=== PATIENT | male | born 1960 | race Caucasian/White ===

== ENCOUNTER → 2016-07-08 | Outpatient (CLI) | payer BC, OTHER ==
[~2016-07-08] MED LIST: GADOBUTROL 10mMol/10ml INJECTION IV ONE; SALINE FLUSH 10ml SYRINGE ONE
--- NOTE | 2016-07-08 09:08 | DI ---
Indication: ITS.REASON: M54.2 NECK PAIN with left arm and shoulder pain and numbness PROCEDURE: MRI CERVICAL SPINE W/WO CONTRA: Encounter: Initial Comparison: Cervical spine radiographs dated May 08, 2016 and MRI cervical spine dated March 28, 2016 Technique: Multiplanar multisequence MR imaging of the cervical spine was performed with and without contrast. Contrast: 10 mL Gadavist Findings: Alignment of the cervical spine is straightened. Interval anterior cervical spine fusion procedure at the C5-C6 level. Vertebral body heights are maintained. No acute fracture. The cervical and visualized upper thoracic spinal cord signal intensity is normal. The paraspinal soft tissues are unremarkable. Segmental analysis: C2-C3: Normal C3-C4: Degenerative facet and uncovertebral changes causing moderate bilateral neural foraminal stenosis. No focal central protrusion or central canal narrowing. C4-C5: Degenerative facet and uncovertebral changes on the left causing moderate neural foraminal stenosis. No significant central canal narrowing. No right foraminal stenosis. C5-C6: Central protrusion effacing the thecal sac with mild central canal stenosis. Degenerative facet and uncovertebral changes causing moderate to severe left and moderate right neural foraminal stenosis. C6-C7: Bony fusion of the vertebral bodies no significant neural foraminal stenosis. C7-T1: Minimal central bulge without central canal stenosis. No significant neural foraminal stenosis. Postcontrast images show no areas of worrisome enhancement. Impression: Interval surgery at the C5-C6 level with improvement in the central canal narrowing at this level. Otherwise stable multilevel neural foraminal stenosis. .
== END ==
LOC: IMA 06:54
PROVIDERS: ATTEND Neurological Surgery
DX: M48.02 Spinal stenosis, cervical region (principal); M47.22 Other spondylosis with radiculopathy, cervical region; M50.122 Cervical disc disorder at C5-C6 level with radiculopathy; Z98.1 Arthrodesis status
CPT/HCPCS: 72156; A9585

== ENCOUNTER → 2016-07-25 | Outpatient (CLI) | payer BC, OTHER ==
--- NOTE | 2016-07-25 13:07 | DI ---
Indication: ITS.REASON: M96.0 Pseudarthrosis after fusion or arthrodesis; T84.498A FAILED PROCEDURE: CT CERVICAL SPINE W/O CONTRAST: Encounter: Initial Comparison: MRI cervical spine dated July 08, 2016 Technique: Axial CT images through the cervical spine were performed without contrast. Coronal and sagittal reformatted images were also obtained. Three-dimensional surface shaded volume rendered imaging was also created by the technologist on a dedicated workstation and reviewed. Automated Exposure Control and Iterative Reconstruction dose reducing techniques were utilized. FINDINGS: The alignment of the cervical spine is stable with anterior C5-C6 spinal fusion with interbody bone graft. No acute fracture identified. No evidence of hardware loosening or failure. Degenerative changes are better evaluated on the recent MRI study. The lung apices are grossly clear. Mild prominent left cervical adenopathy could be reactive. Mildly prominent left supraclavicular lymph nodes as well. Largest node in the left level two measures 1 cm in short axis dimension on axial image #35. Impression: 1. Stable appearance of the anterior C5-C6 spinal fusion. Please refer to the MRI report from July 08, 2016 for detailed segmental analysis. 2. Borderline left neck adenopathy could be reactive or less likely neoplastic/metastatic. Recommend correlation with patient's history. Follow-up contrast enhanced neck CT in 3-6 months may be helpful to evaluate for Interval change. .
== END ==
LOC: IMA 12:26
PROVIDERS: ATTEND Neurological Surgery
DX: Z03.89 Encounter for observation for other suspected diseases and conditions ruled out (principal); R59.0 Localized enlarged lymph nodes; M96.0 Pseudarthrosis after fusion or arthrodesis